=== PATIENT | female | born 1975 | race Caucasian/White ===

== ENCOUNTER 2020-08-23 17:44 | Emergency (ER) | payer BC, OTHER ==
[~2020-08-23 17:44] MED LIST: COZAAR50 MG PO; ENOXAPARIN40 MG/0.4 SC; FLEXERIL 10 MG10 MG PO; GLUCOPHAGE500 MG PO; IBUPROFEN800 MG PO; KEFLEX CAP 500500 MG PO; PERCOCET 5/325 T1 EA PO; VENTOLIN HFA 66.7 GM INH; VITAMIN C 500500 MG PO; VITAMIN D250000 UNIT PO
[2020-08-23 22:54] LABS: HEMOGLOBIN 11.2 gm/dl (12.3-15.3); RED BLOOD COUNT 4.09 M/UL (4.00-5.10); WHITE BLOOD COUNT 12.5 K/UL (4.5-11.0)
[2020-08-23 23:07] LABS: BUN/CREATININE RATIO 17 (0-10)
[2020-08-24] MEDS ORDERED: BENTYL 20MG TAB20 MG PO (01:28)
[2020-08-24] MEDS ORDERED: ZOFRAN4 MG PO (01:28)
[2020-08-24] MEDS ORDERED: IBUPROFEN600 MG PO (01:28)
[2020-12-15] MEDS ORDERED: DAILY VALUE1 EACH PO (11:26)
[2020-12-15] MEDS ORDERED: HAIR SKIN NAIL1 EACH PO (11:26)
[2020-12-15] MEDS ORDERED: PROZAC10 MG PO (11:27)
[2020-12-15] MEDS ORDERED: COZAAR100 MG PO (11:27)
[2020-12-15] MEDS ORDERED: GLUCOPHAGE 500500 MG PO (11:28)
== END 2020-08-24 01:45 | disposition home or self-care (01) ==
LOC: ER1 17:44
PROVIDERS: Internal Medicine
DX: N83.202 Unspecified ovarian cyst, left side (principal); E11.9 Type 2 diabetes mellitus without complications; I10 Essential (primary) hypertension; Z90.49 Acquired absence of other specified parts of digestive tract; Z91.041 Radiographic dye allergy status
CPT/HCPCS: 80053; 81001; 82150; 83690; 84703; 85025; 96374; 96375; 99284; J1170; J2270; J2405; Q9967

== ENCOUNTER → 2020-12-15 | Outpatient (CLI) | payer OTHER ==
[~2020-12-15] MED LIST changes: +BENTYL 20MG TAB20 MG PO; +COZAAR100 MG PO; +DAILY VALUE1 EACH PO; +DOCUSATE SODIU250 MG PO; +GLUCOPHAGE 500500 MG PO; +HAIR SKIN NAIL1 EACH PO; +HYDROCODONE-AC1 EACH PO; +IBUPROFEN600 MG PO; +METFORMIN HCL1000 MG PO; +PROZAC10 MG PO; +ZOFRAN4 MG PO
[2020-12-15 11:30] LABS: HEMOGLOBIN 12.3 gm/dl (12.3-15.3); RED BLOOD COUNT 4.58 M/UL (4.00-5.10); WHITE BLOOD COUNT 9.3 K/UL (4.5-11.0)
[2020-12-15 11:51] LABS: BUN/CREATININE RATIO 30 (0-10)
== END ==
LOC: OPSV2 10:30
PROVIDERS: Obstetrics & Gynecology
DX: Z01.812 Encounter for preprocedural laboratory examination (principal); N94.6 Dysmenorrhea, unspecified
CPT/HCPCS: 36415; 80053; 81001; 85025; 93005

== ENCOUNTER 2021-01-06 06:32 | Day surgery (SDC) | payer OTHER ==
[~2021-01-06] VITALS: Ht 167.6 cm; Wt 126.1 kg
[~2021-01-06 06:32] MED LIST changes: -DOCUSATE SODIU250 MG PO; -HYDROCODONE-AC1 EACH PO
[2021-01-06] MEDS ORDERED: IBUPROFEN600 MG PO (11:00)
[2021-01-06] MEDS ORDERED: DOCUSATE SODIU250 MG PO (11:00)
[2021-01-06] MEDS ORDERED: HYDROCODONE-AC1 EACH PO (11:00)
--- NOTE | 2021-01-06 19:10 | NUR ---
SCUDS APPLIED TO PATIENT ONCE PATIENT ARRIVED TO ROOM 4101 FROM PACU.
== END 2021-01-07 11:41 | disposition home or self-care (01) ==
LOC: OR 06:32 → MED SURG 4 19:15 → OR 01-07 11:41
DX: D25.2 Subserosal leiomyoma of uterus (principal); D25.1 Intramural leiomyoma of uterus; N83.202 Unspecified ovarian cyst, left side; N72 Inflammatory disease of cervix uteri; N92.0 Excessive and frequent menstruation with regular cycle; N80.1 Endometriosis of ovary; N83.8 Other noninflammatory disorders of ovary, fallopian tube and broad ligament; Z88.8 Allergy status to other drugs, medicaments and biological substances; I10 Essential (primary) hypertension; E11.9 Type 2 diabetes mellitus without complications; E55.9 Vitamin D deficiency, unspecified; J45.909 Unspecified asthma, uncomplicated; F32.9 Major depressive disorder, single episode, unspecified; K21.9 Gastro-esophageal reflux disease without esophagitis; E66.01 Morbid (severe) obesity due to excess calories; Z68.41 Body mass index [BMI] 40.0-44.9, adult; Z20.822 Contact with and (suspected) exposure to COVID-19
CPT/HCPCS: 36415; 82962; 84702; C1769; J0690; J1100; J1170; J1885; J2001; J2250; J2270; J2405; J2704; J2710; J3010; J7120; U0002

== ENCOUNTER → 2021-08-18 | Outpatient (CLI) | payer OTHER ==
[~2021-08-18] MED LIST changes: +DOCUSATE SODIU250 MG PO; +HYDROCODONE-AC1 EACH PO
== END ==
LOC: HEART 5 09:11
DX: R00.2 Palpitations (principal); Z86.79 Personal history of other diseases of the circulatory system; I08.1 Rheumatic disorders of both mitral and tricuspid valves; I27.20 Pulmonary hypertension, unspecified
CPT/HCPCS: 93306

== ENCOUNTER → 2021-08-20 | Outpatient (CLI) | payer OTHER | LOC: KOH-I 08-19 09:00 → US 08:18 | DX: K76.0 Fatty (change of) liver, not elsewhere classified (principal); D73.89 Other diseases of spleen | CPT/HCPCS: 76700 ==

== ENCOUNTER 2021-10-22 23:18 | Emergency (ER) | payer OTHER ==
[2021-10-23 00:26] LABS: BUN/CREATININE RATIO 23 (0-10)
== END 2021-10-23 03:07 | disposition home or self-care (01) ==
LOC: ER1 23:18
PROVIDERS: Student in an Organized Health Care Education/Training Program
DX: R51.9 Headache, unspecified (principal); R11.0 Nausea; I10 Essential (primary) hypertension; Z88.5 Allergy status to narcotic agent; Z91.041 Radiographic dye allergy status
CPT/HCPCS: 70450; 71045; 80053; 82550; 82553; 84484; 93005; 96374; 99284; J0780